=== PATIENT | male | born 1985 | race Caucasian/White ===

== ENCOUNTER 2016-09-18 14:28 | Emergency (ER) | payer SELFPAY | END 2016-09-18 19:19 | disposition left against medical advice (07) | LOC: UCCORT 14:28 | DX: Z53.21 Procedure and treatment not carried out due to patient leaving prior to being seen by health care provider (principal); K64.9 Unspecified hemorrhoids ==

== ENCOUNTER 2017-10-07 15:00 | Inpatient (IN) | payer MEDICAID ==
[2017-10-07] MEDS ORDERED: QUEtiapine TAB* 100 MG ONE (15:29)
[2017-10-07] MEDS ORDERED: QUEtiapine TAB* 100 MG PO ONE (15:31)
[2017-10-07 16:19] LABS: ABS Basophils 0.1 10^3/ul (0-0.2); ABS Eosinophils 0.1 10^3/ul (0-0.6); ABS Lymphocytes 2.4 10^3/ul (1.0-4.8); ABS Monocytes 0.9 10^3/ul (0-0.8); ABS Neutrophils 9.7 10^3/ul (1.5-7.7); ABS Nucleated RBC 0 10^3/ul; EGFR Non-African American 86.7 (>60); Eosinophil % 0.8 % (0-6); Hematocrit 50 % (42-52); Lymphocyte % 18.3 % (25-47); Mean Corpuscular HGB Conc 34 g/dl (31-36); Mean Corpuscular Hemoglobin 32 pg (27-31); Mean Corpuscular Volume 92 fL (80-94); Mean Platelet Volume 8 um3 (7.4-10.4); Nucleated Red Blood Cells % 0; Platelet Count 246 10^3/ul (150-450); Red Blood Count 5.39 10^6/ul (4.0-5.4); Red Cell Distribution Width 13 % (10.5-15); White Blood Count 13.2 10^3/ul (3.5-10.8)
[2017-10-07 16:22] LABS: Urine Appearance Clear; Urine Blood Negative (Negative); Urine Color Yellow; Urine Ketones Trace (Negative); Urine Protein Negative (Negative); Urine Specific Gravity 1.031 (1.010-1.030); Urine Urobilinogen Positive (Negative)
--- NOTE | 2017-10-07 22:20 | ED ---
Asa Oshea Julia, scribed for Watson Rabago MD on 10/07/17 at 1626 . Psychiatric Complaint - HPI Summary HPI Summary: This patient is a 31 year old M brought in by state police to [facility] because of suicidal thoughts around 12:00 yesterday. Patient denies having a suicide plan. Patient reports worsening mental health without his prescribed Paxil for the past month due to lack of insurance. Patient is homeless and says he rather be in the hospital than freeze to . - History Of Current Complaint Chief Complaint: EDMentalHealth Time Seen by Provider: 10/07/17 15:40 Hx Obtained From: Patient Onset/Duration: Gradual Onset, Still Present Timing: Constant Character: Angry Related History: Positive For: Prior Psychiatric Issues Has Suicidal: Reports: Thoughts. Denies: With A Plan PMH/Surg Hx/FS Hx/Imm Hx EENT History: Denies: Hx Deafness Psychiatric History: Reports: Other Psychiatric Issues/Disorders Infectious Disease History: No Infectious Disease History: Denies: Traveled Outside the in Last 30 Days - Family History Known Family History: Positive: Unknown - mental health pt is asleep - Social History Occupation: Unemployed Lives: Alone - homeless Review of Systems Negative: Fever Positive: Other - SI All Other Systems Reviewed And Are Negative: Yes Physical Exam - Summary Physical Exam Summary: Appearance: The patient is well-nourished in no acute distress and in no acute pain. Skin: The skin is warm and dry and skin color reflects adequate perfusion. HEENT: The head is normocephalic and atraumatic. The pupils are equal and reactive. The conjunctivae are clear and without drainage. Nares are patent and without drainage. Mouth reveals moist mucous membranes and the throat is without erythema and exudate. The external ears are intact. The ear canals are patent and without drainage. The tympanic membranes are intact. Neck: the neck is supple with full range of motion and non-tender. There are no carotid bruits. There is no neck vein distension. Respiratory: Chest is non-tender. Lungs are clear to auscultation and breath sounds are symmetrical and equal. Cardiovascular: Heart is regular rate and rhythm. There is no murmur or rub auscultated. There is no peripheral edema and pulses are symmetrical and equal. Abdomen: The abdomen is soft and non-tender. There are normal bowel sounds heard in all four quadrants and there is no organomegaly palpated. Musculoskeletal: There is no back tenderness noted. Extremities are non-tender with full range of motion. There is good capillary refill. There is no peripheral edema or calf tenderness elicited. Neurological: Patient is alert and oriented to person, place and time. The patient has symmetrical motor strength in all four extremities. Cranial nerves are grossly intact. Deep tendon reflexes are symmetrical and equal in all four extremities. Psychiatric: The patient has an angry affect. Triage Information Reviewed: Yes Vital Signs On Initial Exam: Initial Vitals Temp Pulse Resp BP Pulse Ox 98.4 F 86 16 123/72 98 10/07/17 15:01 10/07/17 15:01 10/07/17 15:01 10/07/17 15:01 10/07/17 15:01 Vital Signs Reviewed: Yes Diagnostics - Vital Signs Vital Signs Temp Pulse Resp BP Pulse Ox 10/07/17 15:01 98.4 F 86 16 123/72 98 - Laboratory Lab Results: Lab Results 10/07/17 10/07/17 10/07/17 Range/Units 15:45 15:50 15:50 WBC 13.2 H (3.5-10.8) 10^3/ul RBC 5.39 (4.0-5.4) 10^6/ul Hgb 17.0 (14.0-18.0) g/dl Hct 50 (42-52) % MCV 92 (80-94) fL MCH 32 H (27-31) pg MCHC 34 (31-36) g/dl RDW 13 (10.5-15) % Plt Count 246 (150-450) 10^3/ul MPV 8 (7.4-10.4) um3 Neut % (Auto) 73.8 (38-83) % Lymph % (Auto) 18.3 L (25-47) % Victoria % (Auto) 6.7 (1-9) % Eos % (Auto) 0.8 (0-6) % Baso % (Auto) 0.4 (0-2) % Absolute Neuts (auto) 9.7 H (1.5-7.7) 10^3/ul Absolute Lymphs (auto) 2.4 (1.0-4.8) 10^3/ul Absolute Monos (auto) 0.9 H (0-0.8) 10^3/ul Absolute Eos (auto) 0.1 (0-0.6) 10^3/ul Absolute Basos (auto) 0.1 (0-0.2) 10^3/ul Absolute Nucleated RBC 0 10^3/ul Nucleated RBC % 0 Sodium 136 (133-145) mmol/L Potassium 3.7 (3.5-5.0) mmol/L Chloride 102 (101-111) mmol/L Carbon Dioxide 26 (22-32) mmol/L Anion Gap 8 (2-11) mmol/L BUN 17 (6-24) mg/dL Creatinine 1.01 (0.67-1.17) mg/dL Est GFR ( Amer) 111.5 (>60) Est GFR (Non-Af Amer) 86.7 (>60) BUN/Creatinine Ratio 16.8 (8-20) Glucose 105 H (70-100) mg/dL Calcium 9.5 (8.6-10.3) mg/dL Total Bilirubin 0.80 (0.2-1.0) mg/dL AST 21 (13-39) U/L ALT 37 (7-52) U/L Alkaline Phosphatase 72 (34-104) U/L Total Creatine Kinase 86 (10-223) U/L Total Protein 7.1 (6.4-8.9) g/dL Albumin 4.3 (3.2-5.2) g/dL Globulin 2.8 (2-4) g/dL Albumin/Globulin Ratio 1.5 (1-3) TSH 0.40 (0.34-5.60) mcIU/mL Urine Color Yellow Urine Appearance Clear Urine pH 6.0 (5-9) Ur Specific [place] 1.031 H (1.010-1.030) Urine Protein Negative (Negative) Urine Ketones Trace H (Negative) Urine Blood Negative (Negative) Urine Nitrate Negative (Negative) Urine Bilirubin Negative (Negative) Urine Urobilinogen Positive H (Negative) Ur Leukocyte Esterase Negative (Negative) Urine Glucose Negative (Negative) Salicylates < 2.50 (<30) mg/dL Urine Opiates Screen (None Detect) Acetaminophen < 15 mcg/mL Ur Barbiturates Screen (None Detect) Ur Phencyclidine Scrn (None Detect) Ur Amphetamines Screen (None Detect) U Benzodiazepines Scrn (None Detect) Urine Cocaine Screen (None Detect) U Cannabinoids Screen (None Detect) Serum Alcohol < 10 (<10) mg/dL 10/07/17 Range/Units 15:50 WBC (3.5-10.8) 10^3/ul RBC (4.0-5.4) 10^6/ul Hgb (14.0-18.0) g/dl Hct (42-52) % MCV (80-94) fL MCH (27-31) pg MCHC (31-36) g/dl RDW (10.5-15) % Plt Count (150-450) 10^3/ul MPV (7.4-10.4) um3 Neut % (Auto) (38-83) % Lymph % (Auto) (25-47) % Victoria % (Auto) (1-9) % Eos % (Auto) (0-6) % Baso % (Auto) (0-2) % Absolute Neuts (auto) (1.5-7.7) 10^3/ul Absolute Lymphs (auto) (1.0-4.8) 10^3/ul Absolute Monos (auto) (0-0.8) 10^3/ul Absolute Eos (auto) (0-0.6) 10^3/ul Absolute Basos (auto) (0-0.2) 10^3/ul Absolute Nucleated RBC 10^3/ul Nucleated RBC % Sodium (133-145) mmol/L Potassium (3.5-5.0) mmol/L Chloride (101-111) mmol/L Carbon Dioxide (22-32) mmol/L Anion Gap (2-11) mmol/L BUN (6-24) mg/dL Creatinine (0.67-1.17) mg/dL Est GFR ( Amer) (>60) Est GFR (Non-Af Amer) (>60) BUN/Creatinine Ratio (8-20) Glucose (70-100) mg/dL Calcium (8.6-10.3) mg/dL Total Bilirubin (0.2-1.0) mg/dL AST (13-39) U/L ALT (7-52) U/L Alkaline Phosphatase (34-104) U/L Total Creatine Kinase (10-223) U/L Total Protein (6.4-8.9) g/dL Albumin (3.2-5.2) g/dL Globulin (2-4) g/dL Albumin/Globulin Ratio (1-3) TSH (0.34-5.60) mcIU/mL Urine Color Urine Appearance Urine pH (5-9) Ur Specific [place] (1.010-1.030) Urine Protein (Negative) Urine Ketones (Negative) Urine Blood (Negative) Urine Nitrate (Negative) Urine Bilirubin (Negative) Urine Urobilinogen (Negative) Ur Leukocyte Esterase (Negative) Urine Glucose (Negative) Salicylates (<30) mg/dL Urine Opiates Screen None detected (None Detect) Acetaminophen mcg/mL Ur Barbiturates Screen None detected (None Detect) Ur Phencyclidine Scrn None detected (None Detect) Ur Amphetamines Screen Presumptive positive H (None Detect) U Benzodiazepines Scrn None detected (None Detect) Urine Cocaine Screen Presumptive positive H (None Detect) U Cannabinoids Screen None detected (None Detect) Serum Alcohol (<10) mg/dL Result Diagrams: 10/07/17 15:50 10/07/17 15:50 Lab Statement: Any lab studies that have been ordered have been reviewed, and results considered in the medical decision making process. Course/Dx - Course Course Of Treatment: Mr. Baez presented C/O depression and not being able to get his medications because of his insurance. He was medically cleared and had an MHE. They offered him a voluntary admission. - Differential Dx/Clinical Impression Provider Diagnosis: Drug-induced mood disorder - Physician Notifications Instructed by Provider To: Other Discharge - Discharge Plan Condition: Stable Disposition: PSYCHIATRIC FACILITY-[facility] [place] The documentation as recorded by the sAa hanna Julia accurately reflects the service I personally performed and the decisions made by me, Watson Rabago MD.
[2017-10-08] MEDS ORDERED: Nicotine GUM* 2 MG PO PRN (01:47)
[2017-10-08] MEDS ORDERED: Al Hydrox/Mg Hydrox/Simet LIQ* 30 ML UDC PO PRN (01:47)
[2017-10-08] MEDS ORDERED: Mouth Piece, Nicotine* 1 EACH CARTRIDGE INH SCH (01:47)
[2017-10-08] MEDS ORDERED: Acetaminophen TAB* 325 MG PO PRN (01:47)
[2017-10-08] MEDS ORDERED: Nicotine Inhaler* 10 MG AMP INH PRN (01:47)
[2017-10-08] MEDS: Vitamin THERAPEUTIC TAB PO SCH (08:55)
[2017-10-08] MEDS ORDERED: PARoxetine HCL TAB* 10 MG PO ONE (16:40)
[2017-10-08] MEDS ORDERED: chlorproMAZINE TAB* 50 MG PO PRN (16:42)
[2017-10-08] MEDS ORDERED: Haloperidol TAB* 2 MG PO PRN (16:44)
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
[2017-10-09] MEDS: QUEtiapine XR TAB* 300 MG PO SCH ×2 (01:03→20:07)
[2017-10-09] MEDS: Vitamin THERAPEUTIC TAB PO SCH (09:04)
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
[2017-10-10] MEDS: PARoxetine HCL TAB* 20 MG PO SCH (09:06)
[2017-10-10] MEDS: Vitamin THERAPEUTIC TAB PO SCH (09:06)
--- NOTE | 2017-10-10 11:12 | PN ---
Subjective - Subjective Date of Service: 10/10/17 Service Type: 30875 Hosp care 15 min low complexity Subjective: Claudia is seen this morning in coverage for NPP, Portia Rae. He is calm and cooperative with this observer, although I am told that he was refusing blood work earlier today and was quite hostile about it. He denies SI or HI and states that he is doing fine. Milieu participation has been inconsistent. He denies untoward effects from medications. Objective - Appearance Appearance: Well Developed/Nourished Dysmorphic Features: No Hygiene: Normal Grooming: Fairly Well Kept - Behavior Psychomotor Activities: Normal Exhibits Abnormal Movement: No - Attitude and Relatedness Attitude and Relatedness: Superficially Cooperative Eye Contact: Fair - Speech Quality: Unpressured Latencies: Normal Quantity: Appropriate - Mood Patient's Decription of Mood: "Okay" - Affect Observed Affect: Fair Affect Consistent with: Euthymia - Thought Process Patient's Thought Process: Coherent Thought Content: No Passive Wish, No Suicidal Planning, No Homicidal Ideation, No Paranoid Ideation - Sensorium Experiencing Hallucinations: No, Sensorium is Clear Type of Hallucinations: Visual: No, Auditory: No, Command: No - Level of Consciousness Level of Consciousness: Alert Orientation: Yes Intact, Yes Orientated to Time, Yes Orientated to Place, Yes Orientated to Person - Impulse Control Impulse Control: Tenuous - Insight and Judgement Insight and Judgement: Fair - Group Participation Particating in Group Activities: No - Medication Management Medication Management Adherence: Yes Assessment - Assessment Merits Inpatient Hospitalization: Consolidate Improvements, Pending Safe DC Plan Inpatient DSM-IV Dx: bipolar II d/o; substance-induced mood d/o; antisocial personality d/o; cocaine use d/o; alcohol use d/o Clinical Impression: 31yo single, white male with bipolar d/o and antisocial personality admitted on voluntary 9.13 legal status after presenting with dysphoria, irritability suicidality and homicidality in the setting of ongoing substance abuse. Plan - Plan Treatment Plan: Name: CLAUDIA TENA JR Birthdate: 1985 [id number] The patient is tolerating a trial of quetiapine XR 300mg PO qhs and paroxetine 20mg PO qday. He denies SI or HI today. Continue intensive treatment on a locked and secured unit. Continued Medication Management: Start Medication Medications: Current Medications Acetaminophen (Tylenol Tab*) 650 mg PO Q4H PRN PRN Reason: PAIN or TEMP > 101 F Al Hydrox/Mg Hydrox/Simethicone (Maalox Plus*) 30 ml PO Q4H PRN PRN Reason: INDIGESTION Chlorpromazine HCl (Thorazine Tab*) 50 mg PO Q4H PRN PRN Reason: AGITATION Device (Nicotine Mouth Piece*) 1 each INH .[place] Haloperidol (Haldol Tab*) 2 mg PO Q6H PRN PRN Reason: AGITATION Multivitamins (Theragran Tab*) 1 tab PO DAILY [facility] Last Admin: 10/10/17 09:06 Dose: 1 tab Nicotine (Nicotine Inhaler*) 10 mg INH Q2H PRN PRN Reason: CRAVING Nicotine Polacrilex (Nicotine Gum*) 2 mg PO Q2H PRN PRN Reason: CRAVING Paroxetine HCl (Paxil Tab*) 20 mg PO DAILY [facility] Last Admin: 10/10/17 09:06 Dose: 20 mg Quetiapine Fumarate (Seroquel Xr Tab*) 300 mg PO BEDTIME [facility] Last Admin: 10/09/17 20:07 Dose: 300 mg - Discharge Plan Discharge Plan: Inpatient Hospitalization
[2017-10-10] MEDS: QUEtiapine XR TAB* 300 MG PO SCH (20:18)
[2017-10-11 07:56] VITALS: BP 110/57
[2017-10-11] MEDS: PARoxetine HCL TAB* 20 MG PO SCH (08:19)
[2017-10-11] MEDS: Vitamin THERAPEUTIC TAB PO SCH (08:19)
--- NOTE | 2017-10-12 15:26 | DS ---
CC: [facility].* DISCHARGE SUMMARY: SUPERVISING PSYCHIATRIST: Deandre Barlow MD.* (DICTATED BY DAMARIS IZAGUIRRE NP) DATE OF ADMISSION: 10/07/17. DATE OF DISCHARGE: 10/11/17. DISCHARGE DIAGNOSES: 1. Unspecified bipolar disorder. 2. Substance induced mood disorder. 3. Alcohol use disorder. 4. Cocaine use disorder. 5. Tobacco use disorder. 6. Antisocial personality disorder. CONDITION AT THE TIME OF DISCHARGE: Improved. Patient states, "I am back down to reality, the meds are working and I don't want to be confined space." Patient reports he is sleeping better with current medications and endorses improved mood lability. He is agitated and irritable, but mildly redirectable when notified of discharge plan. Patient states "I am starting to feel like myself again." He denies suicidal ideation. He denies paz homicidal ideation. He reports, "I'd been wanting to kill my family since I was 15 years old; will I will do it? Probably not." Patient denies having access to guns or firearms and is not in contact with his parents. He gave underwriter permission to talk to his sister Mary. Patient submitted his 72-hour notice at 1 p.m. He refused blood draws for hemoglobin A1c and lipids for antipsychotic therapy. MENTAL STATUS EXAM AT TIME OF DISCHARGE: Patient is a moderately built, white male, who is well groomed and dressed in his own clothing. He is sitting on the couch in a relaxed position. He expresses irritability due to being in a locked unit. Throughout discussion he is intrusive but is in behavioral control , more so with redirection. He is alert and oriented x3. His eye contact is good. His speech is in normal rate, rhythm and volume. His mood "fine" and his affect is restricted with brief periods of bright affect. Thought process is circumstantial in regards to wanting to leave. Thought content; he denies AV hallucinations, delusions, or depressed mood. He denies SI or SIB. He denies active HI or with plans. He has longstanding resentment against his parents. His insight is fair. Judgment is fair. Fund of knowledge is adequate. DISCHARGE INSTRUCTIONS GIVEN TO THE PATIENT: A. Medications: Paxil 20 mg daily and Seroquel XR 300 mg q. evening. The above prescriptions were electronically sent to [facility] per patient's request. [employer] faxed Prior Authorization form to medicaid for Seroquel XR. B. Diet is regular. C. Activity: Ambulation as tolerated. Tobacco cessation assistance is declined by patient. D. Studies pending at discharge. Hemoglobin A1c and lipid panel were added to the labs obtained in the ED. I will follow up with laboratory to see if those are able to be completed. E. Followup care. Patient agrees to follow up at [facility] and has an intake on 10/17/17 at 10 a.m. He declined offer of a referral to primary care provider. F. Substance abuse followup. Patient denies need for substance abuse as he is not withdrawing from any substances. He states he rarely engages in cocaine and does not need treatment for it. He denies offer of any medications for substance use disorder. HOSPITAL COURSE: A. Reason for admission: The patient presented to the emergency department after making suicidal statements to his mother. He had mentioned that he wanted to kill himself and he also told his sister he is going to pretend to pull a gun on the pinking sewing machine operator, so that they would shoot him. Patient was admitted to the adult behavioral services unit on a voluntary status. His code status was full. He was placed on 15-minute checks for safety. B. Psychiatric treatment rendered: On the first day of patient's admission, he was seclusive and slept the majority of the day. During the few interviews he had with staff, he was irritable and threatening. He was not cooperative with a full interview and appeared to try to intimidate both staff and peers. Patient reported primary stressor of not having his current medications due to not having insurance and difficulty with [facility] benefits. He reported a history of being prescribed Paxil and quetiapine which were helpful for sleep and mood. He agreed to quetiapine XR 300 mg as this is the minimum dose suggested for bipolar disorder. The patient denied needing information about substance use treatment. He declined offer of nicotine replacement. Says he does not typically withdraw and is able to refrain from smoking without withdrawal effects. He reports his urine drug screen was positive for amphetamine because he was in the same room as people who were smoking meth. He does not like methamphetamine. Second day of admission, patient was more cooperative with interview. He was pleasant. He did not recall the previous day and any interactions that he had with staff or peers. He was mildly remorseful for intimidation. But also reported "that's just who I am." He agreed to remain safe on the unit and to continue with medication being reinstated. He was accepting an offer by Social Work to arrange closure of his [facility] benefits in [facility] in order to transfer to [facility]. Patient was seclusive, did not participate in groups. He states, "I don't do groups." He was present for meals and in the milieu. This underwriter recommended to the staff that he could be excused from group due to his violent behavior and for safety of the entire unit. Patient did not sign a release of information for his sister but gave a verbal consent for me to talk with her. I spoke with her and discussed presentation and treatment. On day of discharge, as stated above patient reported he wanted to be able to leave due to concern of decompensation if hospitalization continued. He threatened violence while sitting calmly on couch. He was in behavioral control when notified that discharge planning was in process. He remained at elevated risk for violence due to his history and antisocial personality disorder. 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 He was safe on all checks and due to obligation to treat in a least restrictive setting, discharge was agreed upon by treatment team. Patient was escorted to bus stop without incident. He was given information on how to contact unit or this underwriter if he has any questions or concerns after discharge. DAMARIS IZAGUIRRE, PE[place] [id number]/CPS #: [id number]
== END 2017-10-11 03:25 | disposition home or self-care (01) | DRG 753 ==
LOC: ED 15:00 → MERGE 20:12 → BSU 20:12
PROVIDERS: ADMIT Psychiatry & Neurology Psychiatry; ATTEND Psychiatry & Neurology Psychiatry
DX: F31.81 Bipolar II disorder (principal); R45.851 Suicidal ideations; F20.9 Schizophrenia, unspecified; F60.2 Antisocial personality disorder; F14.90 Cocaine use, unspecified, uncomplicated; F19.94 Other psychoactive substance use, unspecified with psychoactive substance-induced mood disorder; F43.10 Post-traumatic stress disorder, unspecified; F17.210 Nicotine dependence, cigarettes, uncomplicated; Z59.0 Homelessness; Z72.89 Other problems related to lifestyle; Z88.0 Allergy status to penicillin; Z56.0 Unemployment, unspecified
CPT/HCPCS: 36415; 80053; 80307; 80320; 80329; 81003; 82550; 84443; 85025; 99222; 99231; 99238; A9270-GY; G0480